=== PATIENT | male | born 1990 | race Caucasian/White ===

== ENCOUNTER 2021-07-17 10:15 | Outpatient (CLI) | payer OTHER, SELFPAY ==
--- NOTE | 2021-07-17 10:40 | MR_ITS ---
WS: [id number] MRI LEFT KNEE HISTORY: POSITIVE TED TEST OF L KNEE COMPARISON: LEFT knee 07/03/2021 Anterior cruciate ligament: Intact. Posterior cruciate ligament: Intact. Medial collateral ligament: Intact. Posterior lateral corner structures: Intact. Medial menisci: Minimally complex tear in the posterior horn with signal extending towards inferior a rticular surface of the peripheral meniscus. This complex tear also extends towards the body of the m eniscus. Lateral meniscus: Intact. Normal signal, size and shape. Extensor mechanism: Distal quadriceps tendon and patellar tendons are intact. Fluid and soft tissue: Small suprapatellar joint effusion. No Day's cyst. Osseous and articular structures: Patellofemoral compartment: Normal. Medial compartment: Normal. Lateral compartment: Normal. MR/MR knee LT wo con* [id number] IMPRESSION: 1. Minimally complex tear extending to the inferior articular surface posterio r horn medial meniscus involving the outer third. 2. No fracture or marrow edema. 3. Very small suprapatellar effusion. 4. No ACL tear.
== END 2021-07-17 10:16 | disposition home or self-care (01) ==
PROVIDERS: Visit Provider Nurse Practitioner
DX: S83.207A Unspecified tear of unspecified meniscus, current injury, left knee, initial encounter (principal); X58.XXXA Exposure to other specified factors, initial encounter
CPT/HCPCS: 73721

== ENCOUNTER 2021-08-08 11:19 | Day surgery (SDC) | payer OTHER, SELFPAY ==
[2021-08-07 10:00] VITALS: BMI 25.7
[2021-08-08] VITALS (9 sets, daily range): BP systolic 107–133; BP diastolic 61–91; PULSE 76–99; RESP 16–18; TEMP 36.7–37.3; O2SAT 92–98
[2021-08-08] MEDS: sodium chloride 0.9% 1,000 ML 30 ML IV (12:10)
--- NOTE | 2021-08-08 12:59 | ANES.PREANE2 ---
Pre-Anesthetic Assessment Height/Weight: Height 1.88 m Weight 90.718 kg Temp Pulse Resp BP Pulse Ox 99.1 F 99 18 129/91 97 08/08/21 11:45 08/08/21 11:45 08/08/21 11:45 08/08/21 11:45 08/08/21 11:45 Preop Diagnosis: Left medial meniscal tear Operation Date: 08/08/21 13:10 Proposed Procedures p Left Knee Arthroscopy 28355/S83.242A(Left) - Marcelino Guerra MD Familial anesthetic complications: None Was Beta Zeke taken within 24 hours: N/A Was Clonidine taken within 24 hours: N/A Last intake: Intake Last Liquid Date 08/07/21 Last Liquid Time 22:00 Last Solid Date 08/07/21 Last Solid Time 22:00 Social Tobacco (Vapes daily) Exam alert, oriented x 3, clear to auscultation bilaterally and regular rate & rhythm Airway Submandibular: within normal limits Cervical ROM: within normal limits Mallampati: Class I Dentition: full History/ROS No significant complaints Pulmonary None reported CV/HEM None reported None reported Hepatic None reported GI None reported Metabolic None reported Musc/skel None reported Neuropsych None reported Anesthetic Plan ASA status: 2 Anesthesia: Anesthesia Evaluation and General Other: We discussed risk and benefits of general anesthesia including PONV, sore throat (sometimes severe), corneal abrasion, positioning and peripheral nerve injuries, life threatening allergic reaction, post operative ICU admission requiring prolonged intubation, stroke, heart attack, , and rare incidences of recall. Patient consents to proceed with general anesthesia. Risk of > 500 ml blood loss (7ml/kg in children): No Medications/Allergies Home Medications Medication Instructions Recorded Confirmed Last Taken Type No Known Home Medications 08/07/21 08/07/21 Unknown History Allergies Allergy/AdvReac Type Severity Reaction Status Date / Time No Known Allergies Allergy Verified 08/07/21 09:58 Current Medications Generic Name Dose Route Start Last Admin Trade Name Freq PRN Reason Stop Dose Admin Sodium Chloride 1,000 mls @ 30 mls/hr 08/08/21 11:45 08/08/21 12:10 Sodium Chloride 0.9% IV 08/09/21 11:44 30 mls/hr .Q24H RADHA Administration PFSH Anesthesia Social History Smoking and tobacco status: never smoked Data Anesthesia Cardiac Studies: No Data to Display
--- NOTE | 2021-08-08 13:48 | W.PM.OPSUD ---
Surgery/Procedure H&P Update DATE OF PROCEDURE: August 08, 2021 DATE H&P PERFORMED: 08/02/21 H&P UPDATE INFORMATION: I have reviewed H&P completed within last 30 days PREOP DIAGNOSIS: Left medial meniscal tear PLANNED PROCEDURE: Operation Date: 08/08/21 13:10 Proposed Procedures p Left Knee Arthroscopy 16284/S83.242A(Left) - Marcelino Guerra MD
[2021-08-08] MEDS: morphine 4 mg/mL SDV 1 mL 8 MG XX (14:45)
--- NOTE | 2021-08-08 15:19 | PM.OP ---
Operative Report Date of procedure: August 08, 2021 Pre-op diagnosis: Preop Diagnosis Left medial meniscal tear Post-op diagnosis: same Post-op diagnosis: Bucket-handle tear left medial meniscus Procedure done: Left medial meniscal repair Implants: [employer] FasT-Fix x6 Pathology: none sent Anesthesia: General Estimated blood loss (mL): 5 Findings: The patient had a bucket-handle tear of the medial meniscus involving the central 70% with a vascular remaining rim Procedure: Mr. Reina was taken to the operating room and given a general anesthesia. He was given 2 g of Ancef. 30 cc of 0 0.25% Marcaine and 10 mg of morphine were infiltrated in the knee and over the anticipated medial and lateral portals. The leg was prepped and draped in the usual fashion. A timeout was performed. The diagnostic arthroscopy was performed. The unstable longitudinal tear of the medial meniscus identified. The tear involve the central 70% of the meniscus. The meniscal quality seemed reasonable. An incisor shaver was introduced along the remaining posterior meniscus revealing a reasonably vascular rim. Due to the size of the meniscus tear and peripheral vascularity the patient was thought to be a candidate for repair. The remainder of the knee arthroscopy was performed and was unremarkable. Initially working with the scope through the medial portal 3 vertical FasT-Fix anchors were plastic passed through the lateral portal securing the middle third of the medial meniscus the scope was then moved to the lateral portal and 3 additional vertical FasT-Fix anchors were placed in the posterior third of the meniscus. The repair was probed and found to be stable. Frayed central meniscal tissue was lightly debrided back with the [employer] Werewolf probe. The knee was irrigated with saline. Portals were closed with 3-0 Prolene. Sterile dressings were applied. The patient was placed in a knee immobilizer, extubated, and taken to recovery room in stable condition.
--- NOTE | 2021-08-08 15:35 | SUR.PHASEI ---
1524 PT TO PACU 5 , WARM BLANKETS TO PT PT AWAKE ALERT TALKATIVE, IV TO RT AC #20 WITH NS 400ML UP AT KVO PER GRAVITY, LT KNEE DRESSING SOFT D/I KNEE IMMOBILIZER IN PLACE, DISTAL FOOT PINK WARM WITH STRONG REGULAR PULSE NOTED. 1537 PT MORE ALERT TALKING WITH DR HUMPHRIES, VSS IV PATENT.
[2021-08-08] MEDS: oxyCODONE-APAP 5-325 mg Tablet 1 TAB PO (16:11)
--- NOTE | 2021-08-08 16:11 | ANE.PACU2 ---
Inpatient post-anesthesia follow up: Airway intact: Yes Vital signs: Temperature 98.6 F Pulse Rate 76 Respiratory Rate 18 Blood Pressure 107/73 Pulse Oximetry 94 Oxygen Delivery Me thod Room Air Oxygen Flow Rate Fraction of Inspir ed Oxygen Hydration adequate: Yes Nausea and vomiting: No Pain level: 5 Mental status: Baseline
[2021-08-08] MEDS: ondansetron 2 mg/ML SDV 2 mL 4 MG IVP (16:14)
== END 2021-08-08 16:46 | disposition home or self-care (01) ==
PROVIDERS: Visit Provider Orthopaedic Surgery
PROC: (CPT 29870; principal; 2021-08-08 12:50)
DX: S83.212A Bucket-handle tear of medial meniscus, current injury, left knee, initial encounter (principal); X50.1XXA Overexertion from prolonged static or awkward postures, initial encounter; Y99.0 Civilian activity done for income or pay
CPT/HCPCS: 29881; J0690; J2250; J2270; J2405; J2704; J3010; J3490; J7030

== ENCOUNTER 2021-08-21 16:17 | Outpatient (CLI) | payer OTHER, SELFPAY | END 2021-08-21 16:18 | disposition home or self-care (01) | LOC: SPT 16:18 | PROVIDERS: Visit Provider Nurse Practitioner Family | DX: Z47.89 Encounter for other orthopedic aftercare (principal) | CPT/HCPCS: 97760; L1832 ==

== ENCOUNTER 2021-09-24 15:16 | Outpatient (RCR) | payer OTHER, SELFPAY | END 2021-09-26 23:59 | disposition home or self-care (01) | LOC: SPT 15:16 | PROVIDERS: Referring Provider Orthopaedic Surgery; Visit Provider Orthopaedic Surgery | DX: Z47.89 Encounter for other orthopedic aftercare (principal); Z98.890 Other specified postprocedural states | CPT/HCPCS: 97161 ==

== ENCOUNTER 2021-09-27 06:00 | Outpatient (RCR) | payer OTHER, SELFPAY | END 2021-10-27 23:59 | disposition home or self-care (01) | LOC: SPT 06:00 | PROVIDERS: Referring Provider Orthopaedic Surgery; Visit Provider Orthopaedic Surgery | DX: Z47.89 Encounter for other orthopedic aftercare (principal) | CPT/HCPCS: 97110; 97150 ==

== ENCOUNTER 2021-10-28 06:00 | Outpatient (RCR) | payer OTHER, SELFPAY | END 2021-11-07 23:59 | disposition home or self-care (01) | LOC: SPT 06:00 | PROVIDERS: Visit Provider Orthopaedic Surgery | DX: Z47.89 Encounter for other orthopedic aftercare (principal) | CPT/HCPCS: 97110 ==

== ENCOUNTER → 2022-04-18 12:34 | Outpatient (BNVA) | payer OTHER, SELFPAY | PROVIDERS: Visit Provider Podiatrist Foot & Ankle Surgery | DX: M79.672 Pain in left foot (principal) | CPT/HCPCS: 73630 ==